=== PATIENT | male | born 1960 | race Caucasian/White ===

== ENCOUNTER 2018-11-24 04:08 | Emergency (ER) | payer MEDICAID, MEDICARE ==
[~2018-11-24] VITALS: Ht 167.6 cm; Wt 75.0 kg
--- NOTE | 2018-11-24 04:33 | NUR ---
BIB [facility] FROM HIS APARTMENT, PER EMS PT + ETOH, PT'S BLIND AND HE WAS UNABLE TO SEE THAT HIS HOME O2 CONCENTRATOR HAD RAN OUT. ON EMS ARRIVAL PT'S SPO2-60% AND PT WAS ALTERED , EXP WHEEZES. EMT GAVE PT ALBERTEROL T/X AND PT NOW 93% ON 3l N/C. MONITORS APPLIED, SIDERAILS UP X2, CALL LIGHT WITHIN REACH
--- NOTE | 2018-11-24 05:21 | NUR ---
CALLED PT'S CREDIT RISK REVIEW OFFICER ([phone]) NO ANSWER AT THIS TIME, LEFT MESSAGE FOR HER TO CALL HOSPITAL
--- NOTE | 2018-11-24 05:34 | NUR ---
PT SITTING UP IN BED ON CELL PHONE, MONITORS IN PLACE, CALL LIGHT WITHIN REACH.
--- NOTE | 2018-11-24 05:59 | NUR ---
PT CONTINUE TO GET OFF OF STRETCHER, IS A FALL RISK DUE TO INTOX AND O2 CORDS, PT ALSO YELLING OUT FREQUENTLY AND NURSE HAS BEEN CONSTANTLY AT BEDSIDE TO ASSIST THIS GENTLEMAN, PT IS ATTEMTPING TO REACH SOMEONE FOR A RIDE
[2018-11-24 06:27] VITALS: BP 137/69
--- NOTE | 2018-11-24 06:28 | NUR ---
PT SITTING AT BEDSIDE HE STATED THAT HE GOT A HOLD OF HIS CAREGIVER AND THAT SHE IS ON HER WAY TO HIS HOUSE TO GET AN OXYGEN TANK AND BRINGING IT TO THE HOSPITAL. MONITORS IN PLACE, CALL LIGHT WITHIN REACH, PT DENIES FURTHER NEEDS AT THIS TIME
--- NOTE | 2018-11-24 06:58 | NUR ---
received report from Brittny. pt sitting up on edge of [facility] awake & comfortable, restless at times, responds approp to staff, NAD, no needs at this time, call light within reach, awaiting caregiver arrival with O2 tank battery.
--- NOTE | 2018-11-24 06:59 | NUR ---
report given to gregorio pink
--- NOTE | 2018-11-24 07:25 | NUR ---
Caregiver arrived with battery for O2 tank, ERP notified, OK to DC pt. Patient & Caregiver given discharge instructions and they have confirmed that they understand the instructions. Patient ambulatory with steady gait.
== END 2018-11-24 07:28 | disposition home or self-care (01) ==
LOC: ED 07:21
DX: J44.1 Chronic obstructive pulmonary disease with (acute) exacerbation (principal); R09.02 Hypoxemia; F10.129 Alcohol abuse with intoxication, unspecified; E11.9 Type 2 diabetes mellitus without complications; M54.9 Dorsalgia, unspecified; G89.29 Other chronic pain; F17.210 Nicotine dependence, cigarettes, uncomplicated
CPT/HCPCS: 82962; 93005; 99283

== ENCOUNTER 2019-10-03 21:48 | Inpatient (IN) | payer MEDICARE, MEDICAID ==
[~2019-10-03] VITALS: Ht 167.6 cm; Wt 87.9 kg
[~2019-10-03 21:48] MED LIST: AMIO200T42 PO; ATOR-2 PO; ATOR40TA78 PO; CAPT12.52 PO; METH10TA2 PO; METO25TA91 PO; NAPR-816 PO; OMEP-110 PO; RIVA20TA PO; SPIR25TA PO; TICA90TA PO; TRAZ-175 PO; ZOLP10TA PO
--- NOTE | 2019-10-03 22:07 | NUR ---
PT BIB [facility] FOR FAILURE TO THRIVE. PER EUGENE "PT HOME HEALTH NURSE HASNT BEEN TO SEE HIM IN A FEW DAYS. THE SON CALLED 911 BECAUSE THE PT HAS BECOME INCREASINGLY LETHARIC UNAROUSABLE". WHEN EMS ARRIVE THEY SAID THEY WRE ABLE TO AROUSE WITH A STERNAL RUB. EMS ALSO STATED THAT SINCE PT GOT TO ED HE HAS BECOME MORE ALERT AND AWAKE. PT IS A0X3. VERY HARD OF HEARING AND HAS POOR VISION. PT WAS 85% ON RM AIR WHEN EMS ARRIVED. PT IS NON COMPLIANT WITH O2 RX.
[2019-10-03 22:25] LABS: BASOPHILS # (AUTO) 0.06 x10^3/uL (0-0.1); BASOPHILS % (AUTO) 1 % (0-1); EOSINOPHILS # (AUTO) 0.16 x10^3/uL (0-0.4); EOSINOPHILS % (AUTO) 2 % (1-7); LYMPHOCYTES # (AUTO) 1.44 x10^3/uL (1-3.4); LYMPHOCYTES % (AUTO) 16 % (22-44); MD NO; MEAN CORPUSCULAR HEMOGLOBIN 27.2 pg (27.5-34.5); MEAN CORPUSCULAR VOLUME 85.1 fL (81-97); MEAN PLATELET VOLUME 8.2 fL (7.4-10.4); MONOCYTES # (AUTO) 0.38 x10^3/uL (0.2-0.8); MONOCYTES % (AUTO) 4 % (2-9); NEUTROPHILS % (AUTO) 77 % (42-75); PLATELET COUNT 195 x10^3/uL (130-400); RED BLOOD COUNT 5.06 x10^6/uL (4.38-5.82); RED CELL DISTRIBUTION WIDTH 15.8 % (9.4-14.8)
[2019-10-03 22:46] LABS: ALANINE AMINOTRANSFERASE 16 U/L (12-78); ALBUMIN 3.1 g/dL (3.4-5.0); ANION GAP 4 mmol/L (5-15); CHLORIDE 99 mmol/L (98-107)
[2019-10-03 22:51] LABS: ALKALINE PHOSPHATASE 107 U/L (45-117); BILIRUBIN,TOTAL 0.3 mg/dL (0.2-1.0); CREATININE 1.01 mg/dL (0.7-1.3); TOTAL PROTEIN 7.9 g/dL (6.4-8.2)
[2019-10-03 22:54] LABS: TROPONIN I 0.133 ng/mL (0.000-0.045)
--- NOTE | 2019-10-03 22:56 | NUR ---
PT RESTING IN [facility]. PT EDUCATED ON PLAN OF CARE. REPORT GIVEN TO AMAYA BLAKE
[2019-10-03 23:06] LABS: MICROSCOPIC NOT IND
--- NOTE | 2019-10-03 23:09 | NUR ---
Report received from AMAYA Williamson. This RN to assume care. Patient resting in [facility] with no complaints. Patient to be admitted.
[2019-10-03 23:11] LABS: CULTURE INDICATED? NO
[2019-10-03] MEDS ORDERED: ASPIRIN 81 MG TABLET CHEW ONE (23:13)
[2019-10-03] MEDS ORDERED: ASPIRIN 81 MG TABLET CHEW PO ONE (23:30)
[2019-10-04] MEDS ORDERED: ONDANSETRON 2MG/ML, 2ML IVPush PRN
[2019-10-04] MEDS ORDERED: ONDANSETRON ODT 4 MG PO PRN
[2019-10-04] MEDS ORDERED: ZOLPIDEM 10MG TABLET PO PRN
--- NOTE | 2019-10-04 00:03 | NUR ---
Report given to AMAYA Santo. Patient to be transferred to room 510-1.
[2019-10-04 00:33] VITALS: BP 144/88
[2019-10-04] MEDS: RIVAROXABAN 20 MG TABLET PO SCH (05:42)
[2019-10-04] MEDS: NICOTINE 14MG/24 HR PATCH.TD24 TD SCH (05:42)
[2019-10-04 06:35] LABS: ALBUMIN 3.1 g/dL (3.4-5.0); ANION GAP 5 mmol/L (5-15); CALCIUM 9.1 mg/dL (8.5-10.1); CHLORIDE 101 mmol/L (98-107)
[2019-10-04 06:42] LABS: ALANINE AMINOTRANSFERASE 20 U/L (12-78); ALKALINE PHOSPHATASE 108 U/L (45-117); BILIRUBIN,TOTAL 0.4 mg/dL (0.2-1.0); CREATININE 0.88 mg/dL (0.7-1.3); TROPONIN I 0.134 ng/mL (0.000-0.045)
[2019-10-04 06:57] VITALS: BP 135/86
[2019-10-04 07:53] LABS: BASOPHILS # (AUTO) 0.09 x10^3/uL (0-0.1); BASOPHILS % (AUTO) 1 % (0-1); EOSINOPHILS # (AUTO) 0.11 x10^3/uL (0-0.4); EOSINOPHILS % (AUTO) 1 % (1-7); LYMPHOCYTES % (AUTO) 14 % (22-44); MD NO; MEAN CORPUSCULAR HEMOGLOBIN 27.6 pg (27.5-34.5); MEAN CORPUSCULAR HGB CONC 32.5 g/dL (33.2-36.2); MEAN PLATELET VOLUME 7.4 fL (7.4-10.4); MONOCYTES # (AUTO) 0.37 x10^3/uL (0.2-0.8); MONOCYTES % (AUTO) 4 % (2-9); NEUTROPHILS # (AUTO) 7.71 x10^3/uL (1.8-6.8); NEUTROPHILS % (AUTO) 80 % (42-75); PLATELET COUNT 197 x10^3/uL (130-400); RED BLOOD COUNT 4.95 x10^6/uL (4.38-5.82); RED CELL DISTRIBUTION WIDTH 15.8 % (9.4-14.8)
[2019-10-04] MEDS: CAPTOPRIL 12.5 MG TABLET PO SCH ×3 (08:15→21:34)
[2019-10-04] MEDS: TICAGRELOR 90 MG TABLET PO SCH ×2 (08:15→21:33)
[2019-10-04] MEDS: OMEPRAZOLE 20 MG CAPSULE.DR PO SCH (08:15)
[2019-10-04] MEDS: AMIODARONE 200 MG TABLET PO SCH (08:15)
[2019-10-04] MEDS: SPIRONOLACTONE 25 MG TABLET PO SCH (08:15)
[2019-10-04] MEDS: METOPROLOL SUCCINATE 25 MG TAB.ER.24H PO SCH ×2 (08:16→21:33)
[2019-10-04 08:43] LABS: AMPHETAMINE SCREEN, URINE Negative (Negative); BARBITURATE SCREEN, URINE Negative (Negative); BENZODIAZEPINE SCREEN, URINE Positive (Negative); CANNABINOID SCREEN, URINE Negative (Negative); COCAINE SCREEN, URINE Negative (Negative); METHADONE SCREEN, URINE Positive (Negative); OPIATE SCREEN, URINE Negative (Negative)
[2019-10-04] MEDS: INSULIN LISPRO 100 UNITS/ML, PEN SQ-INSULIN SCH ×4 (09:54→21:33)
[2019-10-04] MEDS: morphine SULFATE 10 MG/ML, 1ML IVPush PRN (09:55)
[2019-10-04] MEDS ORDERED: METH10TA2 PO (10:19)
[2019-10-04] MEDS ORDERED: TIAG4TAB18 PO (10:23)
[2019-10-04] MEDS ORDERED: OXYC5CAP2 PO (10:23)
[2019-10-04] MEDS ORDERED: ALBUTEROL/IPRATROPIUM 2.5MG/0.5MG, 3 ML ONE (11:47)
[2019-10-04] MEDS: METHADONE 5 MG TABLET PO SCH ×2 (12:20→16:48)
[2019-10-04] MEDS: TIAGABINE 4 MG PO SCH ×3 (12:58→21:00)
[2019-10-04] MEDS ORDERED: ALBUTEROL SULFATE 2.5 MG/3 ML NPPB PRN (13:30)
[2019-10-04] MEDS: ALBUTEROL/IPRATROPIUM 2.5MG/0.5MG, 3 ML NPPB SCH ×2 (14:45→20:00)
[2019-10-04 14:47] VITALS: BP 142/83
[2019-10-04 19:30] VITALS: BP 124/80
[2019-10-04] MEDS ORDERED: PANT40TA5 PO (19:47)
[2019-10-04] MEDS ORDERED: GABA-827 PO (19:47)
[2019-10-04] MEDS ORDERED: ATOR40TA78 PO (19:47)
[2019-10-04] MEDS ORDERED: CHOL10003 PO (19:47)
[2019-10-04] MEDS ORDERED: ROPI0.25 PO (19:47)
[2019-10-04] MEDS: BUDESONIDE 0.5 MG/2 ML INHA INH SCH (20:21)
[2019-10-04] MEDS: TRAZODONE 100MG TABLET PO SCH (21:33)
[2019-10-04] MEDS: ATORVASTATIN 80 MG TABLET PO SCH (21:33)
[2019-10-04] MEDS: METHADONE 10 MG TABLET PO SCH (21:33)
[2019-10-04 21:34] VITALS: BP 128/78
[2019-10-05 03:00] VITALS: BP 90/56
[2019-10-05 04:59] LABS: ANION GAP 5 mmol/L (5-15); CALCIUM 9.1 mg/dL (8.5-10.1); CHLORIDE 101 mmol/L (98-107); CREATININE 0.96 mg/dL (0.7-1.3)
[2019-10-05] MEDS: RIVAROXABAN 20 MG TABLET PO SCH (05:53)
[2019-10-05] MEDS: morphine SULFATE 10 MG/ML, 1ML IVPush PRN (05:55)
[2019-10-05] MEDS: NICOTINE 14MG/24 HR PATCH.TD24 TD SCH (05:55)
[2019-10-05] MEDS: ALBUTEROL/IPRATROPIUM 2.5MG/0.5MG, 3 ML NPPB SCH ×2 (07:00→21:00)
[2019-10-05 07:11] LABS: MEAN CORPUSCULAR HEMOGLOBIN 27.5 pg (27.5-34.5); MEAN CORPUSCULAR HGB CONC 32.8 g/dL (33.2-36.2); MEAN CORPUSCULAR VOLUME 83.8 fL (81-97); RED BLOOD COUNT 5.35 x10^6/uL (4.38-5.82); RED CELL DISTRIBUTION WIDTH 15.5 % (9.4-14.8)
[2019-10-05] MEDS: BUDESONIDE 0.5 MG/2 ML INHA INH SCH ×2 (07:19→21:00)
[2019-10-05 07:21] VITALS: BP 113/76
[2019-10-05 07:39] LABS: MD YES; MEAN PLATELET VOLUME 8.9 fL (7.4-10.4); PLATELET COUNT 246 x10^3/uL (130-400)
[2019-10-05 08:06] LABS: BAND#(MANUAL) 0.24 x10^3/uL; BANDS%(MANUAL) 2 % (0-7); BASOS#(MANUAL) 0.24 x10^3/uL (0-0.1); BASOS% (MANUAL) 2 % (0-1); EOS#(MANUAL) 0.24 x10^3/uL (0.0-0.4); EOS% (MANUAL) 2 % (1-7); LYMPH#(MANUAL) 2.12 x10^3/uL (1-3.4); LYMPHS% (MANUAL) 18 % (22-44); MONOS#(MANUAL) 0.12 x10^3/uL (0.3-2.7); MONOS% (MANUAL) 1 % (2-9); SEG#(MANUAL) 8.85 x10^3/uL (1.8-6.8); SEGS% (MANUAL) 75 % (42-75)
[2019-10-05 08:07] LABS: <PLATELET ESTIMATE> ADEQUATE; <PLT MORPHOLOGY> NORMAL PLT MORPH; ANISOCYTOSIS 1+
[2019-10-05] MEDS: INSULIN LISPRO 100 UNITS/ML, PEN SQ-INSULIN SCH ×4 (08:24→21:46)
[2019-10-05] MEDS: METHADONE 5 MG TABLET PO SCH ×2 (08:25→16:52)
[2019-10-05] MEDS: SPIRONOLACTONE 25 MG TABLET PO SCH (08:25)
[2019-10-05] MEDS: CAPTOPRIL 12.5 MG TABLET PO SCH ×3 (08:25→21:47)
[2019-10-05] MEDS: AMIODARONE 200 MG TABLET PO SCH (08:25)
[2019-10-05] MEDS: OMEPRAZOLE 20 MG CAPSULE.DR PO SCH (08:25)
[2019-10-05] MEDS: TICAGRELOR 90 MG TABLET PO SCH ×2 (08:25→21:47)
[2019-10-05] MEDS: TIAGABINE 4 MG PO SCH ×3 (08:26→21:47)
[2019-10-05] MEDS: METOPROLOL SUCCINATE 25 MG TAB.ER.24H PO SCH ×2 (08:26→21:47)
[2019-10-05] MEDS ORDERED: REGADENOSON 0.4 MG/5 ML SYRINGE ONE (09:05)
[2019-10-05] MEDS ORDERED: morphine SULFATE 10 MG/ML, 1ML IVPush ONE (11:30)
[2019-10-05] MEDS ORDERED: LORazepam 2 MG/ML, 1ML IVPush ONE ×2 (14:30→15:00)
[2019-10-05 15:16] VITALS: BP 126/77
[2019-10-05] MEDS ORDERED: OMNIPAQUE 350 MG/ML, 100ML BOTTLE ONE (15:37)
[2019-10-05 20:36] VITALS: BP 108/72
[2019-10-05] MEDS: METHADONE 10 MG TABLET PO SCH (21:47)
[2019-10-05] MEDS: ATORVASTATIN 80 MG TABLET PO SCH (21:47)
[2019-10-05] MEDS: TRAZODONE 100MG TABLET PO SCH (21:47)
[2019-10-05] MEDS: VALPROIC ACID 250 MG CAPSULE PO SCH (21:48)
[2019-10-05 21:50] VITALS: BP 117/80
[2019-10-06 02:50] VITALS: BP 116/77
[2019-10-06 04:52] LABS: ANION GAP 7 mmol/L (5-15); CHLORIDE 101 mmol/L (98-107)
[2019-10-06 04:55] LABS: BASOPHILS # (AUTO) 0.02 x10^3/uL (0-0.1); BASOPHILS % (AUTO) 0 % (0-1); EOSINOPHILS # (AUTO) 0.14 x10^3/uL (0-0.4); EOSINOPHILS % (AUTO) 1 % (1-7); LYMPHOCYTES # (AUTO) 1.75 x10^3/uL (1-3.4); LYMPHOCYTES % (AUTO) 14 % (22-44); MD NO; MEAN CORPUSCULAR HEMOGLOBIN 27.4 pg (27.5-34.5); MEAN CORPUSCULAR HGB CONC 32.8 g/dL (33.2-36.2); MEAN CORPUSCULAR VOLUME 83.7 fL (81-97); MEAN PLATELET VOLUME 8.9 fL (7.4-10.4); MONOCYTES # (AUTO) 0.42 x10^3/uL (0.2-0.8); MONOCYTES % (AUTO) 4 % (2-9); NEUTROPHILS % (AUTO) 81 % (42-75); PLATELET COUNT 131 x10^3/uL (130-400); RED BLOOD COUNT 5.22 x10^6/uL (4.38-5.82); RED CELL DISTRIBUTION WIDTH 15.8 % (9.4-14.8)
[2019-10-06 04:59] LABS: CALCIUM 9.4 mg/dL (8.5-10.1); CHOL/HDL RATIO 6.9; CHOLESTEROL, TOTAL 220 mg/dL (140-239); CREATININE 1.05 mg/dL (0.7-1.3); HDL CHOL % 15 % (26-37); HDL CHOLESTEROL (DIRECT) 32 mg/dL (40-60); LDL CHOLESTEROL,CALCULATED 151 mg/dL (54-169); LDL/HDL RATIO 4.7 (0.5-3.0); TRIGLYCERIDES 187 mg/dL (50-200); VLDL CHOLESTEROL 37 mg/dL (0-25)
[2019-10-06 06:55] VITALS: BP 136/86
[2019-10-06] MEDS: SPIRONOLACTONE 25 MG TABLET PO SCH (08:56)
[2019-10-06] MEDS: AMIODARONE 200 MG TABLET PO SCH (08:56)
[2019-10-06] MEDS: CAPTOPRIL 12.5 MG TABLET PO SCH ×3 (08:56→21:12)
[2019-10-06] MEDS: TIAGABINE 4 MG PO SCH ×3 (08:57→21:12)
[2019-10-06] MEDS: METOPROLOL SUCCINATE 25 MG TAB.ER.24H PO SCH ×2 (08:57→22:51)
[2019-10-06] MEDS: VALPROIC ACID 250 MG CAPSULE PO SCH ×2 (08:57→21:13)
[2019-10-06] MEDS: OMEPRAZOLE 20 MG CAPSULE.DR PO SCH (08:57)
[2019-10-06] MEDS: APIXABAN 5 MG TABLET PO SCH ×2 (08:57→21:12)
[2019-10-06] MEDS: NICOTINE 14MG/24 HR PATCH.TD24 TD SCH (08:57)
[2019-10-06] MEDS: TICAGRELOR 90 MG TABLET PO SCH ×2 (08:58→21:12)
[2019-10-06] MEDS: INSULIN LISPRO 100 UNITS/ML, PEN SQ-INSULIN SCH ×4 (08:58→21:20)
[2019-10-06] MEDS: BUDESONIDE 0.5 MG/2 ML INHA INH SCH ×2 (09:00→21:26)
[2019-10-06] MEDS: ALBUTEROL/IPRATROPIUM 2.5MG/0.5MG, 3 ML NPPB SCH ×2 (09:00→21:26)
[2019-10-06] MEDS: METHADONE 5 MG TABLET PO SCH ×2 (09:51→16:52)
--- NOTE | 2019-10-06 11:55 | NUR ---
Rec: chopped/thins: do not anticipate need for [employer] SOCIAL WORKER intervention in regards to dysphagia at time of discharge. Addendum: 10/06/19 at 1156 by Bev SADLER Amended: Links added.
[2019-10-06 12:40] VITALS: BP 97/67
[2019-10-06 16:52] VITALS: BP 108/67
[2019-10-06 19:31] VITALS: BP 120/86
[2019-10-06] MEDS: TRAZODONE 100MG TABLET PO SCH (21:12)
[2019-10-06] MEDS: ATORVASTATIN 80 MG TABLET PO SCH (21:12)
[2019-10-06] MEDS: METHADONE 10 MG TABLET PO SCH (22:50)
[2019-10-07 01:45] VITALS: BP 106/71
[2019-10-07 04:37] LABS: BASOPHILS # (AUTO) 0.07 x10^3/uL (0-0.1); BASOPHILS % (AUTO) 1 % (0-1); EOSINOPHILS # (AUTO) 0.19 x10^3/uL (0-0.4); EOSINOPHILS % (AUTO) 2 % (1-7); LYMPHOCYTES # (AUTO) 1.78 x10^3/uL (1-3.4); LYMPHOCYTES % (AUTO) 16 % (22-44); MD NO; MEAN CORPUSCULAR HEMOGLOBIN 27.2 pg (27.5-34.5); MEAN CORPUSCULAR VOLUME 84.8 fL (81-97); MEAN PLATELET VOLUME 8.6 fL (7.4-10.4); MONOCYTES # (AUTO) 0.36 x10^3/uL (0.2-0.8); MONOCYTES % (AUTO) 3 % (2-9); NEUTROPHILS # (AUTO) 8.89 x10^3/uL (1.8-6.8); NEUTROPHILS % (AUTO) 79 % (42-75); PLATELET COUNT 204 x10^3/uL (130-400); RED BLOOD COUNT 5.42 x10^6/uL (4.38-5.82); RED CELL DISTRIBUTION WIDTH 15.6 % (9.4-14.8)
[2019-10-07 04:48] LABS: ANION GAP 3 mmol/L (5-15); CALCIUM 9.3 mg/dL (8.5-10.1); CHLORIDE 101 mmol/L (98-107); CREATININE 1.15 mg/dL (0.7-1.3)
[2019-10-07] MEDS: NICOTINE 14MG/24 HR PATCH.TD24 TD SCH (06:18)
[2019-10-07 06:45] VITALS: BP 100/65
[2019-10-07] MEDS: INSULIN LISPRO 100 UNITS/ML, PEN SQ-INSULIN SCH ×2 (07:00→11:49)
[2019-10-07] MEDS: VALPROIC ACID 250 MG CAPSULE PO SCH (08:28)
[2019-10-07] MEDS: TICAGRELOR 90 MG TABLET PO SCH (08:28)
[2019-10-07] MEDS: TIAGABINE 4 MG PO SCH (08:28)
[2019-10-07] MEDS: METHADONE 5 MG TABLET PO SCH ×2 (08:28→15:38)
[2019-10-07] MEDS: SPIRONOLACTONE 25 MG TABLET PO SCH (08:29)
[2019-10-07] MEDS: OMEPRAZOLE 20 MG CAPSULE.DR PO SCH (08:29)
[2019-10-07] MEDS: CAPTOPRIL 12.5 MG TABLET PO SCH ×2 (08:29→15:38)
[2019-10-07] MEDS: METOPROLOL SUCCINATE 25 MG TAB.ER.24H PO SCH (08:29)
[2019-10-07] MEDS: APIXABAN 5 MG TABLET PO SCH (08:29)
[2019-10-07] MEDS: AMIODARONE 200 MG TABLET PO SCH (08:29)
[2019-10-07] MEDS: BUDESONIDE 0.5 MG/2 ML INHA INH SCH (08:48)
[2019-10-07] MEDS: ALBUTEROL/IPRATROPIUM 2.5MG/0.5MG, 3 ML NPPB SCH (08:48)
[2019-10-07 12:20] VITALS: BP 120/81
[2019-10-07] MEDS ORDERED: CAPT12.52 PO (13:40)
[2019-10-07] MEDS ORDERED: BUDE0.5A INH (13:40)
[2019-10-07] MEDS ORDERED: VALP250C59 PO (13:40)
[2019-10-07] MEDS ORDERED: APIX5TAB PO (13:40)
[2019-10-08 14:27] LABS: ANA SCREEN NEGATIVE (Negative)
== END 2019-10-07 15:45 | disposition home health service (06) | DRG 64 ==
LOC: ED 23:09 → 5SO 10-04 00:27 → ED 10-04 00:39 → 5SO 10-04 00:39
PROVIDERS: ADMIT Internal Medicine; ATTEND Hospitalist
DX: I63.9 Cerebral infarction, unspecified (principal); I21.4 Non-ST elevation (NSTEMI) myocardial infarction; F11.20 Opioid dependence, uncomplicated; G93.40 Encephalopathy, unspecified; D68.69 Other thrombophilia; I50.22 Chronic systolic (congestive) heart failure; F17.200 Nicotine dependence, unspecified, uncomplicated; J44.9 Chronic obstructive pulmonary disease, unspecified; E11.9 Type 2 diabetes mellitus without complications; R62.7 Adult failure to thrive; I25.10 Atherosclerotic heart disease of native coronary artery without angina pectoris; G89.29 Other chronic pain; M54.9 Dorsalgia, unspecified; I48.0 Paroxysmal atrial fibrillation; E78.5 Hyperlipidemia, unspecified; I25.5 Ischemic cardiomyopathy; Z95.5 Presence of coronary angioplasty implant and graft; Z86.73 Personal history of transient ischemic attack (TIA), and cerebral infarction without residual deficits; Z79.01 Long term (current) use of anticoagulants; Z88.8 Allergy status to other drugs, medicaments and biological substances; I25.2 Old myocardial infarction; Z79.4 Long term (current) use of insulin
CPT/HCPCS: 36415; 70450; 70460; 70491; 70496; 70498; 71045; 78452; 80048; 80053; 80061; 80307; 81003; 82140; 82962; 83036; 83735; 84100; 84443; 84484; 85025; 86038; 86039; 93005; 93017; 93308; 93321; 93325; 94640; 99285; G0378; J2785; J7626; Q9967; A9502; C9898; J1815; J2060; J2270

== ENCOUNTER 2019-10-26 08:47 | Emergency (ER) | payer MEDICARE, MEDICAID ==
[~2019-10-26] VITALS: Ht 170.2 cm; Wt 82.0 kg
[~2019-10-26 08:47] MED LIST changes: +APIX5TAB PO; +BUDE0.5A INH; +CHOL10003 PO; +GABA-827 PO; +OXYC5CAP2 PO; +PANT40TA5 PO; +ROPI0.25 PO; +TIAG4TAB18 PO; +VALP250C59 PO
[2019-10-26] MEDS ORDERED: ONDANSETRON ODT 4 MG PO ONE (09:30)
[2019-10-26] MEDS ORDERED: HYDROmorphone 1 MG/ML, 1ML INJ IM ONE (09:30)
[2019-10-26] MEDS ORDERED: HYDROmorphone 1 MG/ML, 1ML INJ ONE (09:31)
[2019-10-26] MEDS ORDERED: ONDANSETRON ODT 4 MG ONE (09:31)
--- NOTE | 2019-10-26 10:05 | NUR ---
Pt medicated per orders. Ok for D/C, verbalized understanding of D/C orders, has all own belongings upon D/C.
[2019-10-26 10:06] VITALS: BP 131/80
== END 2019-10-26 10:08 | disposition home or self-care (01) ==
LOC: ED 09:52
DX: S39.012A Strain of muscle, fascia and tendon of lower back, initial encounter (principal); Z76.0 Encounter for issue of repeat prescription; J44.9 Chronic obstructive pulmonary disease, unspecified; F17.210 Nicotine dependence, cigarettes, uncomplicated; X58.XXXA Exposure to other specified factors, initial encounter; Y93.89 Activity, other specified; Y92.89 Other specified places as the place of occurrence of the external cause; Y99.8 Other external cause status
CPT/HCPCS: 96372; 99283; J1170; Q0162